=== PATIENT | male | born 1980 | race Hispanic/Latino ===

== ENCOUNTER 2020-09-18 13:42 | Emergency (ER) | payer SELFPAY ==
[2020-09-18] MEDS ORDERED: LIDOCAINE HCL 1% 20 ML VIAL ONE (14:03)
== END 2020-09-18 14:35 | disposition home or self-care (01) ==
LOC: EDH 13:42
DX: S51.811A Laceration without foreign body of right forearm, initial encounter (principal); Z72.0 Tobacco use; W22.8XXA Striking against or struck by other objects, initial encounter; Y93.89 Activity, other specified; Y92.69 Other specified industrial and construction area as the place of occurrence of the external cause; Y99.8 Other external cause status
CPT/HCPCS: 12002; 73090